=== PATIENT | male | born 1930 | race Caucasian/White ===

== ENCOUNTER 2016-09-14 09:40 | Emergency (ER) | payer MEDICARE, BC ==
--- NOTE | ~2016-09-14 | CR72 ---
[facility] A Service of [facility] & [facility] RADIOLOGY TEXT RESULTS PATIENT: DEEPAK MCKEON LOCATION: [facility] : 34 UNIT #: [id number] AGE: [address]: Rohit Nixon MD SEX: M ORDER DR: [id number] [facility] [address] [place], [place] [address] [id number] MR#: [id number] Acc #: [id number] NAME: DEEPAK MCKEON. : 1930 SEX: M STUDY DATE/TIME: 09/14/2016 10:06 UNIT: [facility] ROOM: STUDY DESCRIPTION: CR Chest Single View Portable Attending Physician: Rohit Nixon M.D. Ordering Physician: Rohit Nixon M.D. Primary Care Physician: Denys Shea M.D. MEDICAL IMAGING REPORT This report is preliminary unless electronic signature is present EXAM Portable chest INDICATIONS Cough, sore throat and fever for 2 days. Comparison with 11/27/10 FINDINGS Linear scarring or atelectasis in the lung bases. No airspace consolidation. Heart size normal. Degenerative changes of the right shoulder. IMPRESSION No active disease Dictated by... Ravi Cantrell M.D. THIS IS AN ELECTRONICALLY VERIFIED REPORT Ravi Cantrell M.D. at 09/15/2016 7:32 AM NITA/morgan TD: 09/14/2016 14:04 JOB #: [id number] MEDICAL IMAGING REPORT Page 1 of 1 COPY
[~2016-09-14 09:40] MED LIST: AMBIEN10 MG PO; COREG3.125 MG PO; DILTIAZEM 24HR360 MG PO; LOSARTAN POTAS100 MG PO; PRADAXA150 MG PO; PRILOSEC20 MG DOB
[2016-09-14 10:08] LABS: BASOPHIL% 0.2 % (0-2.5); EOSINOPHIL# 0.3 X10e3 (0-0.7); EOSINOPHIL% 2.1 % (0.0-7.0); HEMATOCRIT 42.7 % (38.0-50.0); HEMOGLOBIN 14.1 gm/dL (13.0-16.0); LYMPHOCYTE# 0.9 X10e3 (1.0-3.5); LYMPHOCYTE% 7.1 % (17.0-45.0); MEAN CELL VOLUME 91.1 FL (83-96); MEAN CORPUSCULAR HGB CONC 32.9 g/dL (30-36); MEAN PLATELET VOLUME 7.5 FL (6.5-11.5); MONOCYTE# 1.1 X10e3 (0-1.0); MONOCYTE% 9.1 % (3.0-12.0); NEUTROPHIL# 9.9 X10e3 (1.5-7.1); NEUTROPHIL% 81.5 % (40-75); PLATELET COUNT 171 X10e3 (140-420); RED BLOOD COUNT 4.69 X10e (3.90-5.60); RED CELL DISTRIBUTION WIDTH 14.1 % (11.0-15.5); WHITE BLOOD COUNT 12.2 X10e3 (4.0-10.5)
[2016-09-14 10:10] LABS: DIFF IND NO
[2016-09-14 10:21] LABS: INR 2.9; PARTIAL THROMBOPLASTIN TIME 47.3 SECONDS (23.5-31.3); PROTHROMBIN TIME (PATIENT) 31.4 SECONDS (10.0-11.7)
[2016-09-14 10:30] LABS: CALCIUM SERUM 8.9 mg/dL (8.4-10.2); CREATININE SERUM 0.8 mg/dL (0.6-1.4); GLOM FILT RATE Estimated 82.1 mL/min (>60); POTASSIUM 4.2 mmol/L (3.5-5.1)
[2016-09-14 10:39] LABS: INFLUENZA A NEG (NEG); INFLUENZA B NEG (NEG)
== END 2016-09-14 11:16 | disposition home or self-care (01) ==
LOC: CED 09:40
PROVIDERS: Emergency Medicine
DX: J06.9 Acute upper respiratory infection, unspecified (principal); I10 Essential (primary) hypertension; E78.5 Hyperlipidemia, unspecified; Z91.041 Radiographic dye allergy status
CPT/HCPCS: 36415; 71010; 80048; 85025; 85610; 85730; 87040; 87651; 87804; 99283

== ENCOUNTER → 2016-10-26 | Outpatient (CLI) | payer MEDICARE, BC | END | disposition home or self-care (01) | LOC: CLAB 11:26 | DX: C61 Malignant neoplasm of prostate (principal); N40.3 Nodular prostate with lower urinary tract symptoms | CPT/HCPCS: 36415; 84153 ==

== ENCOUNTER 2016-11-10 10:22 | Emergency (ER) | payer MEDICARE, BC ==
[~2016-11-10] VITALS: Ht 180.3 cm; Wt 81.6 kg
[2016-11-10 11:22] LABS: INR 2.6; PARTIAL THROMBOPLASTIN TIME 38.7 SECONDS (23.5-31.3); PROTHROMBIN TIME (PATIENT) 27.8 SECONDS (10.0-11.7)
== END 2016-11-10 11:42 | disposition home or self-care (01) ==
LOC: CED 10:22 → CFTX 10:22
PROVIDERS: Physician Assistant
DX: L23.9 Allergic contact dermatitis, unspecified cause (principal); I10 Essential (primary) hypertension; I48.91 Unspecified atrial fibrillation; Z98.890 Other specified postprocedural states; Z87.891 Personal history of nicotine dependence
CPT/HCPCS: 36415; 85610; 85730; 96372; 99283; J3301